=== PATIENT | male | born 1970 | race African-American/Black ===

== ENCOUNTER 2016-08-16 19:19 | Emergency (ER) | payer SELFPAY ==
[~2016-08-16] VITALS: Ht 170.2 cm; Wt 90.7 kg
[2016-08-16] MEDS ORDERED: LIDOCAINE 1%/EPI 1:100,000 20 ML VIAL. INJ ONE (19:30)
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
[2016-08-16 20:02] VITALS: BP 124/80
== END 2016-08-16 20:08 | disposition home or self-care (01) ==
LOC: ER 19:19 → EEVIPCON 19:19 → ER 20:08
DX: S01.81XA Laceration without foreign body of other part of head, initial encounter (principal); W26.0XXA Contact with knife, initial encounter; Y93.89 Activity, other specified; Y92.89 Other specified places as the place of occurrence of the external cause; Y99.8 Other external cause status
CPT/HCPCS: 12013; 99283; J3490